=== PATIENT | male | born 1960 | race African-American/Black ===

== ENCOUNTER 2019-10-13 17:29 | Emergency (ER) | payer SELFPAY ==
[~2019-10-13] VITALS: Ht 162.6 cm; Wt 63.5 kg
[2019-10-13] MEDS ORDERED: ORPHENADRINE CITRATE 60 MG/2 ML VIAL. IM ONE (17:45)
--- NOTE | 2019-10-13 17:49 | PHYS DOC ---
Adult General Chief Complaint Chief Complaint: HIP PAIN HPI HPI Patient is a 59 year old [male] who presents with [right hip pain. States he has had this pain for the past 3 months, has been going to primary care at [facility] and has not had any improvement or evaluation of this. States he has tried tylenol without improvement. She works as an yardage tufting machine operator, has not had any falls recently, has not strained it. Denies any trauma. Denies any heavy lifting. Patient states he just has some shooting pain down his right leg when he tries to breathe, reports he has been walking on it however today he has been increased discomfort when walking to the point that he reports he was in tears when he was trying to walk] (SHAQUILLE HENAO APRN) Review of Systems Review of Systems Constitutional: Denies fever or chills [] Eyes: Denies change in visual acuity, redness, or eye pain [] HENT: Denies nasal congestion or sore throat [] Respiratory: Denies cough or shortness of breath [] Cardiovascular: No additional information not addressed in HPI [] GI: Denies abdominal pain, nausea, vomiting, bloody stools or diarrhea [] : Denies dysuria or hematuria [] Musculoskeletal: Reports pain to right hip, continuing into lower back, with shooting pains down his right leg denies complains with left leg.[] Integument: Denies rash or skin lesions [] Neurologic: Denies headache, focal weakness or sensory changes [] Endocrine: Denies polyuria or polydipsia [] All other systems were reviewed and found to be within normal limits, except as documented in this note. (SHAQUILLE HENAO APRN) Current Medications Current Medications Current Medications Medications (Trade) Dose Ordered Sig/Leonel Start Time Stop Time Status Last Admin Dose Admin Orphenadrine Citrate (Norflex) 60 mg 1X ONCE 10/13/19 17:45 10/13/19 18:04 DC 10/13/19 18:24 60 MG Tramadol HCl (Ultram) 50 mg 1X ONCE 10/13/19 19:30 10/13/19 19:31 DC 10/13/19 19:35 50 MG (CAMELIA WEINBERG MD) Allergies Allergies Allergies Coded Allergies Type Severity Reaction Last Updated Verified No Known Drug Allergies 10/13/19 No (CAMELIA WEINBERG MD) Physical Exam Physical Exam Constitutional: Well developed, well nourished, no acute distress, non-toxic appearance. [] HENT: Normocephalic, atraumatic, bilateral external ears normal, oropharynx moist, no oral exudates, nose normal. [] Eyes: PERRLA, EOMI, conjunctiva normal, no discharge. [] Neck: Normal range of motion, no tenderness, supple, no stridor. [] Cardiovascular:Heart rate regular rhythm, no murmur [] Lungs & Thorax: Bilateral breath sounds clear to auscultation [] Abdomen: Bowel sounds normal, soft, no tenderness, no masses, no pulsatile masses. [] Skin: Warm, dry, no erythema, no rash. [] Back: No tenderness, no CVA tenderness. [] Extremities: No tenderness, no cyanosis, no clubbing, ROM intact, no edema. full passive ROM to right leg, relates discomfort and shooting pain in leg when moving medially. Normal full active and passive ROM to left leg. Reports he cannot actively move right leg without severe discomfort. [] Neurologic: Alert and oriented X 3, normal motor function, normal sensory function, no focal deficits noted. [] Psychologic: Affect normal, judgement normal, mood normal. [] (SHAQUILLE HENAO APRN) Current Patient Data Vital Signs Vital Signs Date Time Temp Pulse Resp B/P (MAP) Pulse Ox O2 Delivery O2 Flow Rate FiO2 10/13/19 19:35 Room Air 10/13/19 19:13 56 14 173/92 (119) 97 10/13/19 17:35 98.5 98.5 (CAMELIA WEINBERG MD) EKG EKG [] (SHAQUILLE HENAO APRN) Radiology/Procedures Radiology/Procedures []Lumbar spine: 2 views of the lumbar spine are obtained. There is no significant listhesis. There is degenerative endplate remodeling at all levels. There is disc space narrowing and facet arthropathy predominantly at L5-S1. Pelvis and right hip: A frontal view of the pelvis and frog-leg view the right hip are obtained. There is mild left greater the right acetabular and femoral head marginal spurring and subchondral cyst formation. No fracture is seen. IMPRESSION: 1. Multilevel degenerative change involving the lumbar spine, primarily at L5-S1. 2. Left greater than right hip osteoarthritis. Electronically signed by: Mirta Hernandez MD (10/13/2019 7:02 PM) [facility] (SHAQUILLE HENAO APRN) Course & Med Decision Making Course & Med Decision Making Pertinent Labs and Imaging studies reviewed. (See chart for details) []Discussed imaging without acute fracture or changes today, with chronic degenerative changes to lower back. Discussed continued use of home pain medications, discussed use of muscle relaxer. We'll provide doesn't pain medications here prior to discharge. Patient to keep follow-up with [facility]. (SHAQUILLE HENAO APRN) Course & Med Decision Making Staff Physician Addendum: I was working in the ER during the course of this patient's visit. I was available for consultation as needed, but I was not directly involved in the care of this patient. (CAMELIA WEINBERG MD) Dragon Disclaimer Dragon Disclaimer This electronic medical record was generated, in whole or in part, using a voice recognition dictation system. (SHAQUILLE HENAO APRN) Departure Departure Impression: Primary Impression: Hip pain Disposition: 01 HOME, SELF-CARE Condition: STABLE Patient Instructions: Hip Pain Additional Instructions: As we discussed continue to take your medications at home for pain. He had a prescription for a muscle issue which will help relax the muscles in her lower back and your right hip which are causing her discomfort. Follow up with your provider at [facility] for continued care. Scripts Orphenadrine Citrate (ORPHENADRINE CITRATE) 100 Mg Tablet.er 100 MG PO BID, #14 TAB.SR Prov: SHAQUILLE HENAO APRN 10/13/19 Problem Qualifiers Primary Impression: Hip pain Laterality: right Qualified Codes: M25.551 - Pain in right hip SHAQUILLE HENAO APRN Oct 13, 2019 17:49 CAMELIA WEINBERG MD Oct 14, 2019 02:10
--- NOTE | 2019-10-13 19:05 | RAD ---
EXAM: Lumbar spine, 2 views; pelvis and right hip, 2 views. HISTORY: Pain. COMPARISON: None. FINDINGS: Lumbar spine: 2 views of the lumbar spine are obtained. There is no significant listhesis. There is degenerative endplate remodeling at all levels. There is disc space narrowing and facet arthropathy predominantly at L5-S1. Pelvis and right hip: A frontal view of the pelvis and frog-leg view the right hip are obtained. There is mild left greater the right acetabular and femoral head marginal spurring and subchondral cyst formation. No fracture is seen. IMPRESSION: 1. Multilevel degenerative change involving the lumbar spine, primarily at L5-S1. 2. Left greater than right hip osteoarthritis. Electronically signed by: Mirta Hernandez MD (10/13/2019 7:02 PM) [facility]
--- NOTE | 2019-10-13 19:05 | RAD ---
EXAM: Lumbar spine, 2 views; pelvis and right hip, 2 views. HISTORY: Pain. COMPARISON: None. FINDINGS: Lumbar spine: 2 views of the lumbar spine are obtained. There is no significant listhesis. There is degenerative endplate remodeling at all levels. There is disc space narrowing and facet arthropathy predominantly at L5-S1. Pelvis and right hip: A frontal view of the pelvis and frog-leg view the right hip are obtained. There is mild left greater the right acetabular and femoral head marginal spurring and subchondral cyst formation. No fracture is seen. IMPRESSION: 1. Multilevel degenerative change involving the lumbar spine, primarily at L5-S1. 2. Left greater than right hip osteoarthritis. Electronically signed by: Mirta Hernandez MD (10/13/2019 7:02 PM) [facility]
[2019-10-13 19:13] VITALS: BP 173/92
[2019-10-13] MEDS ORDERED: ORPH100T PO (19:23)
[2019-10-13] MEDS ORDERED: traMADol 50 MG TABLET PO ONE (19:30)
== END 2019-10-13 19:36 | disposition home or self-care (01) ==
LOC: ER 17:29
DX: M25.551 Pain in right hip (principal); M54.5 Low back pain; M16.11 Unilateral primary osteoarthritis, right hip
CPT/HCPCS: 72100; 73502; 96372; 99284; J2360